=== PATIENT | female | born 1995 | race American Indian/Alaskan Native ===

== ENCOUNTER 2020-09-01 18:10 | Emergency (ER) | payer SELFPAY ==
--- NOTE | 2020-09-01 19:49 | Event Note ---
ED Screening Note Date of service: 09/01/20 Time: 19:48 ED Screening Note: 25-year-old -[place] female presents to the emergency room for an acute onset of abdominal pain since this morning around 10. Patient denies any nausea no vomiting admits to lightheadedness. Denies any fever chills no vaginal discharge or vaginal bleeding. Patient states that the pain is sharp and intermittent. This initial assessment/diagnostic orders/clinical plan/treatment(s) is/are subject to change based on patients health status, clinical progression and re- assessment by fellow clinical providers in the ED. Further treatment and workup at subsequent clinical providers discretion. Patient/guardian urged not to elope from the ED as their condition may be serious if not clinically assessed and managed. Initial orders include:
[2020-09-01 20:30] LABS: Basophils # (Auto) 0.1 K/mm3 (0.0-0.1); Basophils % (Auto) 0.5 % (0.0-1.8); Hemoglobin 12.3 gm/dl (10.1-14.3); Lymphocytes # (Auto) 1.3 K/mm3 (1.2-5.4); Lymphocytes % (Auto) 8.8 % (13.4-35.0); Mean Corpuscular HGB Conc 33 % (30-34); Mean Corpuscular Volume 88 fl (79-97); Monocytes # (Auto) 0.6 K/mm3 (0.0-0.8); Monocytes % (Auto) 4.4 % (0.0-7.3); Platelet Count 219 K/mm3 (140-440); Red Blood Count 4.23 M/mm3 (3.65-5.03); Red Cell Distribution Width 12.9 % (13.2-15.2)
[2020-09-01 20:44] LABS: Alanine Aminotransferase 31 units/L (7-56); Albumin 4.4 g/dL (3.9-5); BUN/Creatinine Ratio 18; Blood Urea Nitrogen 14 mg/dL (7-17); Calcium 9.6 mg/dL (8.4-10.2); Hemolysis Index 5
[2020-09-01 21:59] LABS: Bilirubin,Urine NEG (Negative); Blood,Urine NEG (Negative); Color,Urine Yellow (Yellow); Mucus,Urine FEW /HPF; Protein,Urine <15 mg/dL mg/dL (Negative); Urobilinogen,Urine < 2.0 mg/dL (<2.0)
[2020-09-01] MEDS ORDERED: cefTRIAXone/NS 1 GM/50 ML 1 GM/50 ML BAG IV ONE (22:54)
[2020-09-01] MEDS ORDERED: SODIUM CHLORIDE 0.9% 1000 ML 1,000 ML IV ONE (22:54)
[2020-09-01] MEDS ORDERED: ONDANSETRON 4 MG/2 ML INJ IV ONE (22:54)
[2020-09-01] MEDS ORDERED: MORPHINE 4 MG/1 ML INJ IV ONE (23:04)
--- NOTE | 2020-09-01 23:49 | Cat Scan Report ---
CT ABDOMEN AND PELVIS WITH CONTRAST HISTORY: Abdominal pain and tenderness COMPARISON: None TECHNIQUE: Routine abdominal and pelvic CT exam performed following intravenous contrast administrat ion. Patient received 100 mL IV Omnipaque 300. All CT scans at this location are performed using CT d ose reduction for ALARA by means of automated exposure control. FINDINGS: CT ABDOMEN: Lung Bases: No significant abnormality. Liver: No significant abnormality. Biliary: No significant abnormality. Spleen: No significant abnormality. Unenlarged. Pancreas: No significant abnormality. Adrenals: No significant abnormality. Kidneys: No significant abnormality. Lymphatics: No lymphadenopathy. Vasculature: No significant abnormality. Bowel/Peritoneum: There is a small volume of ascites in the abdomen. Some of the more dependent ascit es appears to be hyperattenuating. There is no free air, obstruction, or pneumatosis. Normal appendix . CT PELVIC: : There is a 2 cm left ovarian cyst. Lymphatics: No lymphadenopathy. Osseous Structures: No aggressive appearing osseous lesions. Additional Findings: None IMPRESSION: 1. Small volume of ascites in the abdomen, with hyperattenuating ascites in the dependent portion the abdomen that may indicate blood products. There is a left ovarian cyst. The findings could indicate a ruptured hemorrhagic ovarian cyst. Signer Name: Bowen Jasso MD Signed: 09/01/2020 11:44 PM Workstation Name: [id number]
--- NOTE | 2020-09-02 02:25 | Emergency Department Report ---
ED Abdominal Pain HPI - General Chief Complaint: Abdominal Pain Stated Complaint: ABD PAINS Time Seen by Provider: 09/02/20 02:16 Source: patient Mode of arrival: Ambulatory Limitations: No Limitations - History of Present Illness Initial Comments: Patient is a nulliparous 25-year-old -[place] female with no past medical history who presents to the ED with complaint of acute onset persistent severe diffuse abdominal pain that radiates to the right flank with nausea intermittently for the last 12 hours. Patient states that the pain waxes and wanes and and that it has periods of sharp stabbing pain intermittently. Patient states that prior to arrival in the ED, the pain was worse such that she could not walk or lay still. Patient denies vaginal bleeding, vaginal discharge, dizziness, syncope, chest pain, shortness of breath, dysuria, low back pain, vomiting, fever, chills, cough, sore throat, hematemesis or hematochezia and diarrhea. MD Complaint: abdominal pain (Diffuse abdominal pain radiating to right flank), other (Nausea) -: Sudden, hour(s) (12) Location: diffuse, R flank Radiation: R flank Migration to: no migration Severity scale (0 -10): 8 Quality: cramping, aching, sharp Consistency: intermittent Improves With: nothing Worsens With: movement Associated Symptoms: denies other symptoms, nausea, anorexia. denies: vomiting, diarrhea, fever, chills, constipation, hematemesis, hematochezia, melena, hematuria, syncope, other - Related Data LMP Date: 08/10/20 Previous Rx's Medication Instructions Recorded Last Taken Type Fluconazole (Nf) [Diflucan TAB] 150 mg PO ONCE #1 tablet 09/02/20 Unknown Rx Ketorolac [Toradol] 10 mg PO Q8H PRN #20 tablet 09/02/20 Unknown Rx Ondansetron [Zofran Odt] 4 mg PO Q6HR PRN #20 tab.rapdis 09/02/20 Unknown Rx cephALEXin [Keflex] 500 mg PO Q8HR #30 capsule 09/02/20 Unknown Rx traMADoL [Ultram] 50 mg PO Q6HR PRN #12 tablet 09/02/20 Unknown Rx Allergies Allergy/AdvReac Type Severity Reaction Status Date / Time No Known Allergies Allergy Unverified 09/01/20 19:24 ED Review of Systems ROS: Stated complaint: ABD PAINS Other details as noted in HPI Constitutional: denies: chills, fever Eyes: denies: eye pain, eye discharge, vision change ENT: denies: ear pain, throat pain Respiratory: denies: cough, shortness of breath, wheezing Cardiovascular: denies: chest pain, palpitations Endocrine: no symptoms reported Gastrointestinal: abdominal pain (Diffuse, radiating to the right flank), nausea. denies: diarrhea Genitourinary: denies: urgency, dysuria, frequency, hematuria, discharge, abnormal menses, dyspareunia Musculoskeletal: denies: back pain, joint swelling, arthralgia Skin: denies: rash, lesions Neurological: denies: headache, weakness, paresthesias Psychiatric: denies: anxiety, depression Hematological/Lymphatic: denies: easy bleeding, easy bruising ED Past Medical Hx - Past Medical History Previous Medical History?: No - Surgical History Past Surgical History?: No - Social History Smoking Status: Never Smoker Substance Use Type: Marijuana - Medications Home Medications: Home Medications Medication Instructions Recorded Confirmed Last Taken Type Fluconazole (Nf) [Diflucan TAB] 150 mg PO ONCE #1 tablet 09/02/20 Unknown Rx Ketorolac [Toradol] 10 mg PO Q8H PRN #20 tablet 09/02/20 Unknown Rx Ondansetron [Zofran Odt] 4 mg PO Q6HR PRN #20 tab.rapdis 09/02/20 Unknown Rx cephALEXin [Keflex] 500 mg PO Q8HR #30 capsule 09/02/20 Unknown Rx traMADoL [Ultram] 50 mg PO Q6HR PRN #12 tablet 09/02/20 Unknown Rx ED Physical Exam - General Limitations: No Limitations General appearance: alert, in no apparent distress, anxious - Head Head exam: Present: atraumatic, normocephalic, normal inspection - Eye Eye exam: Present: normal appearance, PERRL, EOMI Pupils: Present: normal accommodation - ENT ENT exam: Present: normal exam, normal orophraynx, mucous membranes moist, TM's normal bilaterally, normal external ear exam - Neck Neck exam: Present: normal inspection, full ROM - Respiratory Respiratory exam: Present: normal lung sounds bilaterally. Absent: respiratory distress, wheezes, rales, chest wall tenderness, accessory muscle use, prolonged expiratory - Cardiovascular Cardiovascular Exam: Present: regular rate, normal rhythm. Absent: systolic murmur, diastolic murmur, rubs, gallop - GI/Abdominal GI/Abdominal exam: Present: soft, tenderness (Palpable periumbilical and right flank tenderness), normal bowel sounds. Absent: distended, guarding, rebound, rigid, hyperactive bowel sounds, hypoactive bowel sounds, organomegaly - Bi-manual exam: Present: other (Pelvic exam deferred, patient declined) - Extremities Exam Extremities exam: Present: normal inspection, full ROM, normal capillary refill - Back Exam Back exam: Present: normal inspection, full ROM. Absent: tenderness, CVA tenderness (R), CVA tenderness (L), muscle spasm, paraspinal tenderness, vertebral tenderness - Neurological Exam Neurological exam: Present: alert, oriented X3, CN II-XII intact, normal gait, reflexes normal - Psychiatric Psychiatric exam: Present: normal affect, normal mood - Skin Skin exam: Present: warm, dry, intact, normal color. Absent: rash ED Course Vital Signs 09/01/20 19:25 Temperature 98.3 F Pulse Rate 88 Respiratory 18 Rate Blood Pressure 124/78 [Left] O2 Sat by Pulse 99 Oximetry ED Medical Decision Making - Lab Data Result diagrams: 09/01/20 20:00 09/01/20 20:00 - Radiology Data Radiology results: report reviewed, [place] [address] Cat Scan Report Signed Patient: NING SILVEIRA MR#: [id number] : 1995 Acct:[id number] Age/Sex: 25 / F ADM Date: 09/01/20 Loc: ED Attending Dr: Ordering Physician: KRISTYN MARTINEZ Date of Service: 09/01/20 Procedure(s): CT abdomen pelvis w con Accession Number(s): [id number] cc: KRISTYN MARTINEZ CT ABDOMEN AND PELVIS WITH CONTRAST HISTORY: Abdominal pain and tenderness COMPARISON: None TECHNIQUE: Routine abdominal and pelvic CT exam performed following intravenous contrast administration. Patient received 100 mL IV Omnipaque 300. All CT scans at this location are p erformed using CT dose reduction for ALARA by means of automated exposure c ontrol. FINDINGS: CT ABDOMEN: Lung Bases: No significant abnormality. Liver: No significant abnormality. Biliary: No significant abnormality. Spleen: No significant abnormality. Unenlarged. Pancreas: No significant abnormality. Adrenals: No significant abnormality. Kidneys: No significant abnormality. Lymphatics: No lymphadenopathy. Vasculature: No significant abnormality. Bowel/Peritoneum: There is a small volume of ascites in the abdomen. Some of the more dependent ascites appears to be hyperattenuating. There is no free air, obstruction, or pneumatosis. Normal appendix. CT PELVIC: : There is a 2 cm left ovarian cyst. Lymphatics: No lymphadenopathy. Osseous Structures: No aggressive appearing osseous lesions. Additional Findings: None IMPRESSION: 1. Small volume of ascites in the abdomen, with hyperattenuating ascites in the dependent portion the abdomen that may indicate blood products. There is a left ovarian cyst. The findings could indicate a ruptured hemorrhagic ovarian cyst. Signer Name: Bowen Jasso MD Signed: 09/01/2020 11:44 PM Workstation Name: [id number] Transcribed By: JUSTO Dictated By: Bowen Jasso MD Electronically Authenticated By: Bowen Jasso MD Signed Date/Time: 09/01/202343 DD/ 41 TD/TT: - Medical Decision Making This is a nulliparous 25-year-old -[place] female with no past medical history who presents to the ED with complaint of acute onset persistent severe diffuse abdominal pain that radiates to the right flank with nausea intermittently for the last 12 hours. Patient states that the pain waxes and wanes and and that it has periods of sharp stabbing pain intermittently. Patient states that prior to arrival in the ED, the pain was worse such that she could not walk or lay still. In the ED, patient is alert and oriented x3 and is not in any distress. Patient however appears to be in significant pain, rolling on the bed and crying in pain during the physical exam. Patient was treated for pain and also given antiemetics and normal saline 1 L IV bolus x1. Lab test results were reviewed and showed acute leukocytosis of 14,600, hCG quant was negative and urinalysis showed significant urinary tract infection with positive nitrites, and >12 WBCs. The abdomen pelvis CT scan with contrast showed small volume of ascites in the abdomen, with hyperattenuating ascites in the dependent portion the abdomen that may indicate blood products. There is a left ovarian cyst. The findings could indicate a ruptured hemorrhagic ovarian c yst. Patient also received Rocephin 1 g IV x1 for UTI. On reevaluation, patient's pain is well controlled medications. Patient was discharged home on pain medications and antibiotics as well as antiemetics and was advised to follow-up with her primary care physician in 5 to 7 days for reevaluation. Patient was advised to return to the ED immediately if symptoms get worse. - Differential Diagnosis Appendicitis; kidney stones; UTI; ovarian cyst; gallstones; ectopic pregnan Critical care attestation.: If time is entered above; I have spent that time in minutes in the direct care of this critically ill patient, excluding procedure time. ED Disposition Clinical Impression: Acute urinary tract infection, Ruptured cyst of left ovary Abdominal pain Qualifiers: Abdominal location: generalized Qualified Code(s): R10.84 - Generalized abdominal pain Disposition: TO HOME OR SELFCARE Is pt being admited?: No Does the pt Need Aspirin: No Condition: Stable Instructions: Abdominal Pain (ED), Ovarian Cyst, [id number], Flank Pain, Adult, [id number], Abdominal Pain, Adult, [id number], Urinary Tract Infection, Adult, [id number] Additional Instructions: Lab test results are positive for acute urinary tract infection. Take medication with food, drink plenty of fluids and follow-up with your primary care physician in 5 to 7 days for reevaluation. Return to the ED immediately if symptoms get worse. Prescriptions: Fluconazole (Nf) [Diflucan TAB] 150 mg PO ONCE #1 tablet cephALEXin [Keflex] 500 mg PO Q8HR #30 capsule Ketorolac [Toradol] 10 mg PO Q8H PRN #20 tablet PRN Reason: Pain traMADoL [Ultram] 50 mg PO Q6HR PRN #12 tablet PRN Reason: Pain Ondansetron [Zofran Odt] 4 mg PO Q6HR PRN #20 tab.rapdis PRN Reason: Nausea Referrals: [facility] [Provider Group] - 7-10 days Time of Disposition: 02:31 Print Language: CITIZEN OF [place]
[2020-09-02 05:28] VITALS: BP 122/72
== END 2020-09-02 02:39 | disposition home or self-care (01) ==
LOC: ED 18:10
DX: N39.0 Urinary tract infection, site not specified (principal); N83.292 Other ovarian cyst, left side
CPT/HCPCS: 36415; 74177; 80053; 81001; 83690; 84702; 85025; 87076; 87086; 87186; 96361; 96365; 96375; 99284; J0696; J2270; J2405; J7030; Q9967